=== PATIENT | male | born 1990 | race Caucasian/White ===

== ENCOUNTER 2022-08-12 10:56 | Emergency (ER) | payer MEDICAID ==
[~2022-08-12] VITALS: Ht 177.8 cm; Wt 104.3 kg
[2022-08-12 11:16] VITALS: BP 120/99
[2022-08-12 11:58] LABS: APPEARANCE,URINE CLEAR (CLEAR); BILIRUBIN,URINE NEGATIVE (NEGATIVE); BLOOD, URINE NEGATIVE (NEGATIVE); COLOR,URINE YELLOW (YELLOW); LEUKOCYTE ESTERASE ,URINE NEGATIVE (NEGATIVE); NITRITE, URINE NEGATIVE (NEGATIVE); UGLUCOSE NEGATIVE (NEGATIVE)
[2022-08-12] MEDS ORDERED: CYCL-711 PO (12:15)
[2022-08-12] MEDS ORDERED: NAPR-54 PO (12:15)
[2022-08-12 12:23] VITALS: BP 116/62
== END 2022-08-12 12:23 | disposition home or self-care (01) ==
LOC: MED 10:56
DX: S39.012A Strain of muscle, fascia and tendon of lower back, initial encounter (principal); Z79.899 Other long term (current) drug therapy; X58.XXXA Exposure to other specified factors, initial encounter; Y93.89 Activity, other specified; Y92.89 Other specified places as the place of occurrence of the external cause; Y99.8 Other external cause status
CPT/HCPCS: 81003; 99283